=== PATIENT | female | born 1980 | race Two or more races ===

== ENCOUNTER 2017-03-18 19:11 | Emergency (ER) | payer SELFPAY ==
[~2017-03-18] VITALS: Ht 162.6 cm; Wt 125.2 kg
[~2017-03-18 19:11] MED LIST: FERR325T PO; LEVO100T8
[2017-03-18 19:41] VITALS: BP 130/77
[2017-03-18] MEDS ORDERED: ACETAMINOPHEN 325 MG TAB PO ONE ×2 (19:45→20:00)
[2017-03-18 20:12] LABS: Urine Bilirubin Negative (Negative); Urine Blood 3+ /uL (Negative); Urine Color Yellow (Yellow); Urine Glucose Normal (Normal); Urine Ketone Negative (Negative); Urine Mucus FEW (None Seen); Urine Nitrite Negative (Negative); Urine RBC 7 /hpf (0 - 4); Urine Squamous Epithelial Cell MOD /hpf (<5); Urine Urobilinogen Normal (Negative); Urine pH 5.5 (5.0-8.0)
[2017-03-18 20:14] LABS: Basophils # (auto) 0.1 uL; Basophils % (auto) 0.7 % (0.0-2.0); Eosinophils # (auto) 0 uL; Eosinophils % (auto) 0.1 % (0.0-7.0); Hematocrit 43.2 % (36.0-46.0); Hemoglobin 14.6 g/dL (12.2-16.2); Lymphocytes # (auto) 1.7 uL; Lymphocytes % (auto) 16.8 % (10.0-50.0); Mean Corpuscular Hemoglobin 28.5 pg (28.0-32.0); Mean Corpuscular Hgb Conc. 33.8 g/dL (32.0-36.0); Mean Corpuscular Volume 84.3 fL (80.0-100.0); Mean Platelet Volume 9.2 fL (6.9-10.8); Monocytes # (auto) 0.5 uL; Monocytes % (auto) 5.2 % (0.0-12.0); Neutrophils # (auto) 7.8 uL; Neutrophils % (auto) 77.2 % (37.0-80.0); Platelet Count (auto) 289 10^3/uL (140-450); Red Cell Distribution Width 14.2 % (11.8-14.3); White Blood Cell 10.1 10^3/uL (4.4-10.8)
[2017-03-18 20:30] LABS: Albumin 3.6 g/dL (3.4-5.0); Calcium 9.1 mg/dL (8.5-10.1); Potassium 3.7 mmol/L (3.5-5.1)
[2017-03-18 20:33] LABS: Bilirubin, Total 0.7 mg/dL (0.2-1.0)
[2017-03-18] MEDS ORDERED: ONDANSETRON ODT 4 MG TAB PO ONE (21:00)
== END 2017-03-18 21:58 | disposition home or self-care (01) ==
LOC: ER 19:23
DX: K52.9 Noninfective gastroenteritis and colitis, unspecified (principal); N39.0 Urinary tract infection, site not specified; E07.89 Other specified disorders of thyroid
CPT/HCPCS: 36415; 80053; 81001; 85025; 99284; Q0162

== ENCOUNTER 2017-06-12 20:59 | Emergency (ER) | payer MEDICAID ==
[~2017-06-12] VITALS: Ht 170.2 cm; Wt 136.1 kg
[~2017-06-12 20:59] MED LIST changes: +FERR-20 PO; -FERR325T PO
[2017-06-12 21:25] VITALS: BP 155/90
[2017-06-12 21:54] LABS: Basophils # (auto) 0.1 uL; Basophils % (auto) 0.4 % (0.0-2.0); Eosinophils # (auto) 0.1 uL; Eosinophils % (auto) 0.9 % (0.0-7.0); Hematocrit 42.9 % (36.0-46.0); Lymphocytes # (auto) 2.7 uL; Lymphocytes % (auto) 20.5 % (10.0-50.0); Mean Corpuscular Hemoglobin 27.8 pg (28.0-32.0); Mean Corpuscular Hgb Conc. 32.7 g/dL (32.0-36.0); Monocytes # (auto) 0.8 uL; Monocytes % (auto) 6.3 % (0.0-12.0); Neutrophils # (auto) 9.5 uL; Neutrophils % (auto) 71.9 % (37.0-80.0); Platelet Count (auto) 318 10^3/uL (140-450); Red Blood Cells 5.05 10^6/uL (4.0-5.20); Red Cell Distribution Width 14.3 % (11.8-14.3); White Blood Cell 13.1 10^3/uL (4.4-10.8)
[2017-06-12 22:14] LABS: Albumin 3.7 g/dL (3.4-5.0); BUN/Creatinine Ratio 23.2; Bilirubin, Total 0.3 mg/dL (0.2-1.0); Calcium 8.9 mg/dL (8.5-10.1); Total Protein 8.2 g/dL (6.4-8.2)
== END 2017-06-12 23:24 | disposition left against medical advice (07) ==
LOC: EDBD 20:59 → ER 21:20
DX: T38.2X1A Poisoning by antithyroid drugs, accidental (unintentional), initial encounter (principal); Z53.21 Procedure and treatment not carried out due to patient leaving prior to being seen by health care provider; Y93.89 Activity, other specified; Y99.8 Other external cause status; Y92.89 Other specified places as the place of occurrence of the external cause
CPT/HCPCS: 36415; 80053; 84443; 85025

== ENCOUNTER 2020-06-03 16:37 | Inpatient (IN) | payer MEDICAID ==
[~2020-06-03] VITALS: Ht 165.1 cm; Wt 113.0 kg
[2020-06-03] MEDS ORDERED: ACETAMINOPHEN 325 MG TAB PO ONE (18:15)
[2020-06-03] MEDS ORDERED: AZITHROMYCIN 500MG/ 250ML 250 ML IV ONE (19:00)
[2020-06-03] MEDS ORDERED: ZINC SULFATE 220mg CAP or TAB PO ONE (19:00)
[2020-06-03] MEDS ORDERED: DexAMETHasone SOD PHOS 10MG/1ML VIAL INJ IV ONE (19:00)
[2020-06-03 20:12] LABS: Basophils # (auto) 0 10 ^3/uL (0-0.2); Basophils % (auto) 0.3 % (0.0-2.0); Eosinophils # (auto) 0 10 ^3/uL (0-0.8); Eosinophils % (auto) 0.1 % (0.0-7.0); Hematocrit 39.4 % (36.0-46.0); Hemoglobin 13.4 g/dL (12.2-16.2); Lymphocytes # (auto) 1.5 10 ^3/uL (0.4-5.4); Lymphocytes % (auto) 23.9 % (10.0-50.0); Mean Corpuscular Hgb Conc. 33.9 g/dL (32.0-36.0); Mean Corpuscular Volume 82.6 fL (80.0-100.0); Monocytes # (auto) 0.6 10 ^3/uL (0-1.3); Neutrophils # (auto) 4.1 10 ^3/uL (1.6-8.6); Neutrophils % (auto) 65.7 % (37.0-80.0); Nucleated Red Blood Cells % 0.2 %; Platelet Count (auto) 207 10^3/uL (140-450); Red Blood Cells 4.77 10^6/uL (4.0-5.20); Red Cell Distribution Width 13.8 % (11.8-14.3); White Blood Cell 6.2 10^3/uL (4.4-10.8)
[2020-06-03 20:39] LABS: Albumin 3.3 g/dL (3.4-5.0); Magnesium 2.1 mg/dL (1.6-2.6); Potassium 3.7 mmol/L (3.5-5.1)
[2020-06-03 20:44] LABS: BUN/Creatinine Ratio 15.5; Bilirubin, Total 0.5 mg/dL (0.2-1.0); Total Protein 8.2 g/dL (6.4-8.2)
[2020-06-03] MEDS ORDERED: TEMAZEPAM 15 MG CAP PO PRN (21:00)
[2020-06-03] MEDS ORDERED: ONDANSETRON HCL 4 MG/2 ML VIAL IV PRN (21:00)
[2020-06-03] MEDS ORDERED: REMDESIVIR PER PHARMACY 0 ML IV SCH (21:00)
[2020-06-03] MEDS ORDERED: NITROGLYCERIN 0.4 MG SL TAB SL PRN (21:00)
[2020-06-03] MEDS ORDERED: ACETAMINOPHEN 500 MG TAB PO PRN (21:00)
[2020-06-03] MEDS ORDERED: MORPHINE SULF INJ 2 MG/ML SYRINGE 1ML IV PRN (21:00)
[2020-06-03 21:40] LABS: Magnesium 2.3 mg/dL (1.6-2.6)
[2020-06-03 21:49] LABS: CRP High Sensitivity 9.41 mg/dL (< 0.3)
[2020-06-03] MEDS: FAMOTIDINE 20 MG TAB PO SCH (22:00)
[2020-06-03] MEDS: ENOXAPARIN SOD 40 MG/0.4 ML SYRINGE SC SCH (22:00)
[2020-06-04 06:30] LABS: Basophils # (auto) 0 10 ^3/uL (0-0.2); Basophils % (auto) 0.1 % (0.0-2.0); Eosinophils # (auto) 0 10 ^3/uL (0-0.8); Hematocrit 39.1 % (36.0-46.0); Hemoglobin 13.2 g/dL (12.2-16.2); Lymphocytes # (auto) 0.7 10 ^3/uL (0.4-5.4); Lymphocytes % (auto) 16.4 % (10.0-50.0); Mean Corpuscular Hemoglobin 28.1 pg (28.0-32.0); Mean Corpuscular Hgb Conc. 33.6 g/dL (32.0-36.0); Mean Corpuscular Volume 83.4 fL (80.0-100.0); Monocytes # (auto) 0.2 10 ^3/uL (0-1.3); Monocytes % (auto) 4.1 % (0.0-12.0); Neutrophils # (auto) 3.2 10 ^3/uL (1.6-8.6); Neutrophils % (auto) 79.4 % (37.0-80.0); Nucleated Red Blood Cells % 0.2 %; Platelet Count (auto) 191 10^3/uL (140-450); Red Blood Cells 4.69 10^6/uL (4.0-5.20); Red Cell Distribution Width 14.2 % (11.8-14.3)
[2020-06-04] MEDS: LEVOTHYROXINE SODIUM 100 MCG TAB PO SCH (06:30)
[2020-06-04 06:51] LABS: Albumin 3.2 g/dL (3.4-5.0); Calcium 8.9 mg/dL (8.5-10.1)
[2020-06-04 06:55] LABS: BUN/Creatinine Ratio 18.1; Bilirubin, Total 0.5 mg/dL (0.2-1.0); Total Protein 8.2 g/dL (6.4-8.2)
[2020-06-04] MEDS: DexAMETHasone SOD PHOS 10MG/1ML VIAL INJ IV SCH (10:05)
[2020-06-04] MEDS: ZINC SULFATE 220mg CAP or TAB PO SCH (10:05)
[2020-06-04] MEDS: ASCORBIC ACID 1,000 MG TAB PO SCH (10:06)
[2020-06-04] MEDS: FAMOTIDINE 20 MG TAB PO SCH ×2 (10:06→21:32)
[2020-06-04] MEDS: CHOLECALCIFEROL (VITD3) 2,000 UNIT CAP PO SCH (10:06)
[2020-06-04] MEDS: ENOXAPARIN SOD 40 MG/0.4 ML SYRINGE SC SCH ×2 (10:06→21:30)
[2020-06-04] MEDS ORDERED: POTASSIUM CHL 10 Meq TABLET PO ONE (13:30)
[2020-06-04] MEDS ORDERED: FUROSEMIDE 40 MG/4 ML VIAL IV ONE (13:30)
[2020-06-04] MEDS ORDERED: diphenhdrAMINE HCL 50 MG/1 ML VL IV PRN (13:30)
[2020-06-04] MEDS: FUROSEMIDE 40 MG/4 ML VIAL IV SCH (18:00)
[2020-06-04] MEDS: BUDESONIDE (INHALATION) 180 MCG IH IN SCH (19:24)
[2020-06-04] MEDS ORDERED: REMDESIVIR 200 MG in NS 210ml LOADING DOSE ADULT IV ONE (20:00)
[2020-06-04] MEDS: ALBUTEROL SULF HFA 90MCG INH 200DOSE IN PRN (20:56)
[2020-06-04] MEDS: AZITHROMYCIN 500MG/ 250ML 250 ML IV SCH (21:31)
[2020-06-04] MEDS: POTASSIUM CHL 10 Meq TABLET PO SCH (21:31)
[2020-06-05] VITALS: BP 122/78
[2020-06-05 00:16] LABS: Urine Bacteria NONE SEEN /hpf (None Seen); Urine Blood Negative /uL (Negative); Urine Mucus FEW (None Seen); Urine Specific Gravity 1.027 (1.001-1.035); Urine WBC 1 /hpf (0 - 5)
[2020-06-05 00:31] LABS: Amphetamine Screen, Urine NEGATIVE (NEGATIVE); Barbiturate Scree,Urine NEGATIVE (NEGATIVE); Benzodiazephine Screen, Urine NEGATIVE (NEGATIVE); Cannabinoid Screen, Urine NEGATIVE (NEGATIVE); Cocaine Screen, Urine NEGATIVE (NEGATIVE); Opiate Scree,Urine NEGATIVE (NEGATIVE); Phencyclidine Screen, Urine NEGATIVE (NEGATIVE)
[2020-06-05 00:35] LABS: Alcohol, Urine < 3.0 mg/dL (0-10)
[2020-06-05] MEDS ORDERED: MIDAZOLAM DRIP 50 mg/50mL 100 ML IV ONE (03:24)
[2020-06-05] MEDS ORDERED: NOREPINEPHRINE 8 MG/250ML KIT 250 ML IV ONE (03:24)
[2020-06-05] MEDS ORDERED: VASOPRESSIN 20 UNIT/ML ONE (03:44)
[2020-06-05] MEDS: FUROSEMIDE 40 MG/4 ML VIAL IV SCH ×2 (06:36→17:49)
[2020-06-05] MEDS: LEVOTHYROXINE SODIUM 100 MCG TAB PO SCH (06:37)
[2020-06-05] MEDS: BUDESONIDE (INHALATION) 180 MCG IH IN SCH ×2 (07:24→19:02)
[2020-06-05 08:00] VITALS: BP 119/72
[2020-06-05] MEDS: ALBUTEROL SULF HFA 90MCG INH 200DOSE IN PRN ×2 (08:25→19:02)
[2020-06-05 08:51] LABS: Potassium 4.1 mmol/L (3.5-5.1)
[2020-06-05] MEDS: DexAMETHasone SOD PHOS 10MG/1ML VIAL INJ IV SCH (09:24)
[2020-06-05] MEDS: ASCORBIC ACID 1,000 MG TAB PO SCH (09:25)
[2020-06-05] MEDS: ZINC SULFATE 220mg CAP or TAB PO SCH (09:25)
[2020-06-05] MEDS: CHOLECALCIFEROL (VITD3) 2,000 UNIT CAP PO SCH (09:25)
[2020-06-05] MEDS: FAMOTIDINE 20 MG TAB PO SCH ×2 (09:25→21:30)
[2020-06-05] MEDS: POTASSIUM CHL 10 Meq TABLET PO SCH ×2 (09:25→21:30)
[2020-06-05] MEDS: ENOXAPARIN SOD 40 MG/0.4 ML SYRINGE SC SCH ×2 (09:26→21:31)
[2020-06-05 09:31] LABS: Albumin 3.3 g/dL (3.4-5.0); BUN/Creatinine Ratio 25.3; Bilirubin, Total 0.5 mg/dL (0.2-1.0); Total Protein 8.7 g/dL (6.4-8.2)
[2020-06-05] MEDS: REMDESIVIR 100 MG in SODIUM CHL 0.9% 250 ML IV SCH (15:46)
[2020-06-05 16:30] VITALS: BP 113/58
[2020-06-05] MEDS: AZITHROMYCIN 500MG/ 250ML 250 ML IV SCH (21:30)
[2020-06-05 23:33] VITALS: BP 140/69
[2020-06-06] MEDS: FUROSEMIDE 40 MG/4 ML VIAL IV SCH ×2 (06:00→18:00)
[2020-06-06] MEDS: LEVOTHYROXINE SODIUM 100 MCG TAB PO SCH (06:11)
[2020-06-06] MEDS: BUDESONIDE (INHALATION) 180 MCG IH IN SCH (06:58)
[2020-06-06] MEDS: ALBUTEROL SULF HFA 90MCG INH 200DOSE IN PRN (07:31)
[2020-06-06 08:00] VITALS: BP 109/70
[2020-06-06 08:39] LABS: Albumin 3.1 g/dL (3.4-5.0); BUN/Creatinine Ratio 29.6; Bilirubin, Total 0.3 mg/dL (0.2-1.0); Calcium 8.9 mg/dL (8.5-10.1); Potassium 4.2 mmol/L (3.5-5.1); Total Protein 7.8 g/dL (6.4-8.2)
[2020-06-06] MEDS: POTASSIUM CHL 10 Meq TABLET PO SCH (09:49)
[2020-06-06] MEDS: ASCORBIC ACID 1,000 MG TAB PO SCH (09:49)
[2020-06-06] MEDS: DexAMETHasone SOD PHOS 10MG/1ML VIAL INJ IV SCH (09:49)
[2020-06-06] MEDS: ZINC SULFATE 220mg CAP or TAB PO SCH (09:49)
[2020-06-06] MEDS: FAMOTIDINE 20 MG TAB PO SCH (09:49)
[2020-06-06] MEDS: ENOXAPARIN SOD 40 MG/0.4 ML SYRINGE SC SCH (09:50)
[2020-06-06] MEDS: CHOLECALCIFEROL (VITD3) 2,000 UNIT CAP PO SCH (09:50)
[2020-06-06] MEDS ORDERED: ALBUAER3 IN (11:15)
[2020-06-06] MEDS ORDERED: AZIT500T66 PO (11:15)
[2020-06-06] MEDS ORDERED: ZINC220T6 PO (11:15)
[2020-06-06] MEDS ORDERED: ASCO500T11 PO (11:15)
[2020-06-06] MEDS ORDERED: CHOL20007 PO (11:15)
[2020-06-06] MEDS ORDERED: PANT40TA2 PO (11:15)
[2020-06-06] MEDS ORDERED: FURO40TA4 PO (11:15)
[2020-06-06] MEDS ORDERED: POTA10TA51 PO (11:15)
[2020-06-06] MEDS ORDERED: METH4PAK PO (11:15)
[2020-06-06] MEDS ORDERED: DEXT1SYP9 PO (11:17)
[2020-06-06] MEDS ORDERED: ONDA-144 PO (11:17)
[2020-06-06 13:36] VITALS: BP 109/70
[2020-06-06] MEDS ORDERED: ASPI81CH43 PO (14:11)
[2020-06-06] MEDS: REMDESIVIR 100 MG in SODIUM CHL 0.9% 250 ML IV SCH (15:37)
[2020-06-06 16:00] VITALS: BP 102/64
== END 2020-06-06 19:30 | disposition home or self-care (01) | DRG 137 ==
LOC: ER 16:37 → OVERFLOW 16:38 → TELE-WESTW 06-04 17:17
PROVIDERS: ADMIT Nurse Practitioner; ATTEND Internal Medicine
PROC: XW033E5 Introduction of Remdesivir Anti-infective into Peripheral Vein, Percutaneous Approach, New Technology Group 5 (ICD-10-PCS; principal; 2020-06-04)
DX: U07.1 COVID-19 (principal); J12.89 Other viral pneumonia; J96.01 Acute respiratory failure with hypoxia; E66.01 Morbid (severe) obesity due to excess calories; I10 Essential (primary) hypertension; R65.10 Systemic inflammatory response syndrome (SIRS) of non-infectious origin without acute organ dysfunction; Z82.49 Family history of ischemic heart disease and other diseases of the circulatory system; E03.9 Hypothyroidism, unspecified; D64.9 Anemia, unspecified; R79.89 Other specified abnormal findings of blood chemistry; E44.1 Mild protein-calorie malnutrition; Z68.42 Body mass index [BMI] 45.0-49.9, adult
CPT/HCPCS: 36415; 36600; 71045; 80053; 80307; 81001; 82728; 82805; 83036; 83605; 83615; 83735; 83880; 84443; 84484; 84702; 85025; 85379; 86141; 86850; 86900; 86901; 87040; 87426; 94640; 96365; 96368; 96375; G0378; J1100; J2250; J7060

== ENCOUNTER 2021-01-11 11:23 | Inpatient (IN) | payer MEDICAID ==
[~2021-01-11] VITALS: Ht 167.6 cm; Wt 148.5 kg
[~2021-01-11 11:23] MED LIST changes: +ALBUAER3 IN; +ASCO500T11 PO; +ASPI81CH43 PO; +AZIT500T66 PO; +CHOL20007 PO; +DEXT1SYP9 PO; +FURO40TA4 PO; +METH4PAK PO; +ONDA-144 PO; +PANT40TA2 PO; +POTA10TA51 PO; +ZINC220T6 PO
[2021-01-11] MEDS ORDERED: SODIUM CHLORIDE 0.9% 500 ML IVB ONE (11:45)
[2021-01-11] MEDS ORDERED: ONDANSETRON HCL 4 MG/2 ML VIAL IV ONE (11:45)
[2021-01-11] MEDS ORDERED: MORPHINE SULFATE 4 MG/ML SYR/VIAL IV ONE (11:45)
[2021-01-11] MEDS ORDERED: PANTOPRAZOLE 40 MG/10 ML VIAL INJ IV ONE (11:45)
[2021-01-11 11:57] LABS: Basophils # (auto) 0 10 ^3/uL (0-0.2); Basophils % (auto) 0.6 % (0.0-2.0); Eosinophils # (auto) 0.1 10 ^3/uL (0-0.8); Hematocrit 39.8 % (36.0-46.0); Hemoglobin 13.4 g/dL (12.2-16.2); Lymphocytes # (auto) 1.9 10 ^3/uL (0.4-5.4); Lymphocytes % (auto) 25.7 % (10.0-50.0); Mean Corpuscular Hemoglobin 28.6 pg (28.0-32.0); Mean Corpuscular Hgb Conc. 33.7 g/dL (32.0-36.0); Mean Corpuscular Volume 84.7 fL (80.0-100.0); Monocytes # (auto) 0.5 10 ^3/uL (0-1.3); Monocytes % (auto) 7.1 % (0.0-12.0); Neutrophils # (auto) 4.8 10 ^3/uL (1.6-8.6); Neutrophils % (auto) 64.6 % (37.0-80.0); Nucleated Red Blood Cells % 0.1 %; Red Blood Cells 4.69 10^6/uL (4.0-5.20); Red Cell Distribution Width 14.3 % (11.8-14.3); White Blood Cell 7.4 10^3/uL (4.4-10.8)
[2021-01-11 12:37] LABS: Albumin 3.7 g/dL (3.4-5.0); Calcium 9.8 mg/dL (8.5-10.1)
[2021-01-11 12:44] LABS: BUN/Creatinine Ratio 17.5; Bilirubin, Total 1.4 mg/dL (0.2-1.0); Total Protein 8.6 g/dL (6.4-8.2)
[2021-01-11] MEDS ORDERED: hydrALAZINE HCL 20 MG/ML VL IV PRN (14:00)
[2021-01-11] MEDS ORDERED: MORPHINE SULF INJ 2 MG/ML SYRINGE 1ML IV PRN (14:00)
[2021-01-11] MEDS ORDERED: MORPHINE SULFATE 4 MG/ML SYR/VIAL IV PRN (14:00)
[2021-01-11] MEDS ORDERED: NITROGLYCERIN 0.4 MG SL TAB SL PRN (14:00)
[2021-01-11] MEDS ORDERED: LORazepam 2MG/ML-1ML VIAL IV PRN (14:00)
[2021-01-11] MEDS ORDERED: LEVO88CA3 PO (21:18)
[2021-01-12 06:24] LABS: Basophils # (auto) 0 10 ^3/uL (0-0.2); Basophils % (auto) 0.6 % (0.0-2.0); Eosinophils # (auto) 0.2 10 ^3/uL (0-0.8); Eosinophils % (auto) 3.3 % (0.0-7.0); Hematocrit 38.1 % (36.0-46.0); Hemoglobin 12.7 g/dL (12.2-16.2); Lymphocytes # (auto) 1.9 10 ^3/uL (0.4-5.4); Lymphocytes % (auto) 26.3 % (10.0-50.0); Mean Corpuscular Hemoglobin 28.4 pg (28.0-32.0); Mean Corpuscular Hgb Conc. 33.4 g/dL (32.0-36.0); Monocytes # (auto) 0.6 10 ^3/uL (0-1.3); Monocytes % (auto) 8.3 % (0.0-12.0); Neutrophils # (auto) 4.5 10 ^3/uL (1.6-8.6); Neutrophils % (auto) 61.5 % (37.0-80.0); Red Blood Cells 4.48 10^6/uL (4.0-5.20); Red Cell Distribution Width 14.6 % (11.8-14.3); White Blood Cell 7.2 10^3/uL (4.4-10.8)
[2021-01-12 06:40] LABS: INR 1.03 (0.9-1.15)
[2021-01-12 06:49] LABS: Albumin 3.2 g/dL (3.4-5.0); Calcium 8.6 mg/dL (8.5-10.1); Potassium 3.7 mmol/L (3.5-5.1)
[2021-01-12 06:50] VITALS: BP 98/57
[2021-01-12 06:51] LABS: BUN/Creatinine Ratio 20.5
[2021-01-12 06:53] LABS: Bilirubin, Total 0.7 mg/dL (0.2-1.0); Total Protein 7.6 g/dL (6.4-8.2)
[2021-01-12 08:19] LABS: Urine Bacteria NONE SEEN /hpf (None Seen); Urine Blood Negative /uL (Negative); Urine Mucus FEW (None Seen); Urine WBC 5 /hpf (0 - 5)
[2021-01-12 09:00] VITALS: BP 131/79
[2021-01-12] MEDS: PANTOPRAZOLE 40 MG/10 ML VIAL INJ IV SCH (09:02)
[2021-01-12] MEDS: ENOXAPARIN SOD 40 MG/0.4 ML SYRINGE SC SCH (09:03)
[2021-01-12] MEDS ORDERED: ALBUTEROL SULF 2.5 MG/0.5ML(0.5%) NEB SOLN NEB PRN (10:00)
[2021-01-12] MEDS: SODIUM CHLORIDE 0.9% 1,000 ML IV SCH ×2 (10:34→20:00)
[2021-01-12] MEDS ORDERED: LEVOTHYROXINE SODIUM 100 MCG TAB PO ONE (10:45)
[2021-01-12 13:00] VITALS: BP 110/71
[2021-01-12 15:00] VITALS: BP 110/71
[2021-01-12 16:45] VITALS: BP 148/80
[2021-01-12] MEDS: FERROUS SULFATE 325mg EC TAB PO SCH (17:55)
[2021-01-12 22:00] VITALS: BP 123/71
[2021-01-13 05:00] VITALS: BP 113/65
[2021-01-13 05:45] LABS: Basophils # (auto) 0.1 10 ^3/uL (0-0.2); Basophils % (auto) 0.8 % (0.0-2.0); Eosinophils # (auto) 0.3 10 ^3/uL (0-0.8); Hematocrit 36.4 % (36.0-46.0); Hemoglobin 12.4 g/dL (12.2-16.2); Lymphocytes # (auto) 2.5 10 ^3/uL (0.4-5.4); Lymphocytes % (auto) 34.3 % (10.0-50.0); Mean Corpuscular Hemoglobin 28.6 pg (28.0-32.0); Mean Corpuscular Hgb Conc. 34.1 g/dL (32.0-36.0); Mean Corpuscular Volume 83.7 fL (80.0-100.0); Monocytes # (auto) 0.5 10 ^3/uL (0-1.3); Monocytes % (auto) 6.8 % (0.0-12.0); Neutrophils # (auto) 3.9 10 ^3/uL (1.6-8.6); Neutrophils % (auto) 54.1 % (37.0-80.0); Nucleated Red Blood Cells % 0.1 %; Red Blood Cells 4.35 10^6/uL (4.0-5.20); Red Cell Distribution Width 14.3 % (11.8-14.3); White Blood Cell 7.2 10^3/uL (4.4-10.8)
[2021-01-13 06:04] LABS: Potassium 3.6 mmol/L (3.5-5.1)
[2021-01-13 06:25] LABS: Albumin 3.1 g/dL (3.4-5.0); BUN/Creatinine Ratio 20.3; Bilirubin, Total 0.5 mg/dL (0.2-1.0); Calcium 8.6 mg/dL (8.5-10.1); Total Protein 7.4 g/dL (6.4-8.2)
[2021-01-13] MEDS: LEVOTHYROXINE SODIUM 100 MCG TAB PO SCH (06:36)
[2021-01-13] MEDS: ENOXAPARIN SOD 40 MG/0.4 ML SYRINGE SC SCH (08:47)
[2021-01-13] MEDS: FERROUS SULFATE 325mg EC TAB PO SCH ×2 (08:47→17:33)
[2021-01-13] MEDS: PANTOPRAZOLE 40 MG/10 ML VIAL INJ IV SCH (08:47)
[2021-01-13 09:00] VITALS: BP 117/74
[2021-01-13 13:00] VITALS: BP 124/84
[2021-01-13 17:00] VITALS: BP 125/74
[2021-01-13] MEDS: SODIUM CHLORIDE 0.9% 1,000 ML IV SCH (17:33)
[2021-01-13 22:00] VITALS: BP 120/70
[2021-01-14] MEDS: SODIUM CHLORIDE 0.9% 1,000 ML IV SCH ×2 (02:00→12:35)
[2021-01-14 05:00] VITALS: BP 107/76
[2021-01-14 05:51] LABS: Basophils # (auto) 0 10 ^3/uL (0-0.2); Basophils % (auto) 0.6 % (0.0-2.0); Eosinophils # (auto) 0.2 10 ^3/uL (0-0.8); Eosinophils % (auto) 3.3 % (0.0-7.0); Hemoglobin 12.9 g/dL (12.2-16.2); Lymphocytes # (auto) 2.2 10 ^3/uL (0.4-5.4); Mean Corpuscular Hemoglobin 27.9 pg (28.0-32.0); Mean Corpuscular Hgb Conc. 33.1 g/dL (32.0-36.0); Mean Corpuscular Volume 84.5 fL (80.0-100.0); Monocytes # (auto) 0.5 10 ^3/uL (0-1.3); Monocytes % (auto) 7.6 % (0.0-12.0); Neutrophils # (auto) 3.4 10 ^3/uL (1.6-8.6); Neutrophils % (auto) 53.5 % (37.0-80.0); Red Blood Cells 4.62 10^6/uL (4.0-5.20); Red Cell Distribution Width 14.3 % (11.8-14.3); White Blood Cell 6.3 10^3/uL (4.4-10.8)
[2021-01-14] MEDS: LEVOTHYROXINE SODIUM 100 MCG TAB PO SCH (05:53)
[2021-01-14 06:22] LABS: Potassium 4.1 mmol/L (3.5-5.1)
[2021-01-14 06:32] LABS: Albumin 3.3 g/dL (3.4-5.0); BUN/Creatinine Ratio 11.4; Calcium 8.7 mg/dL (8.5-10.1)
[2021-01-14 06:34] LABS: Bilirubin, Total 0.5 mg/dL (0.2-1.0); Total Protein 7.8 g/dL (6.4-8.2)
[2021-01-14] MEDS ORDERED: ROCURONIUM 10MG/ML 10ML VIAL IV ONE (07:37)
[2021-01-14] MEDS ORDERED: SODIUM CHLORIDE LOCK 10 ML ONE (07:37)
[2021-01-14] MEDS ORDERED: PROPOFOL 10 MG/ML 20 ML IV ONE (07:37)
[2021-01-14] MEDS ORDERED: fentaNYL CITRATE 100 MCG/2 ML VL ONE (07:37)
[2021-01-14] MEDS ORDERED: HYDROmorphone HCL 2 MG/ML VL ONE (07:37)
[2021-01-14] MEDS ORDERED: NEOSTIGMINE 1 MG/ML INJ (10mg/10ML VIAL) ONE (07:37)
[2021-01-14] MEDS ORDERED: GLYCOPYRROLATE 0.2 MG/ML 1ML VIAL ONE (07:37)
[2021-01-14] MEDS ORDERED: ONDANSETRON HCL 4 MG/2 ML VIAL ONE (07:37)
[2021-01-14] MEDS ORDERED: MIDAZOLAM HCL 2MG/2ML 2ml VIAL (1mg/ml) ONE (07:37)
[2021-01-14] MEDS ORDERED: LIDOCAINE 2% (LOCAL ANESTH.) PF 5ml SDV ONE (07:39)
[2021-01-14 08:00] VITALS: BP 130/71
[2021-01-14] MEDS: FERROUS SULFATE 325mg EC TAB PO SCH (08:00)
[2021-01-14] MEDS ORDERED: ceFAZolin 1GM/50ML 100 ML IV ONE (08:12)
[2021-01-14] MEDS ORDERED: MORPHINE SULFATE 4 MG/ML SYR/VIAL IV PRN ×2 (09:00→13:15)
[2021-01-14] MEDS ORDERED: HYDROmorphone HCL 2 MG/ML VL IV PRN (09:00)
[2021-01-14] MEDS ORDERED: METOCLOPRAMIDE HCL 5MG/ml INJ 2ml VIAL IV PRN (09:00)
[2021-01-14 12:12] VITALS: BP 114/68
[2021-01-14] MEDS: PANTOPRAZOLE 40 MG/10 ML VIAL INJ IV SCH (12:35)
[2021-01-14] MEDS: HYDROcodone-ACET 5/325MG TAB PO PRN (12:48)
[2021-01-14] MEDS: MORPHINE SULFATE 4 MG/ML SYR/VIAL IV PRN ×2 (13:25→22:21)
[2021-01-14] MEDS: ONDANSETRON HCL 4 MG/2 ML VIAL IV PRN (13:26)
[2021-01-14] MEDS ORDERED: HYDROmorphone HCL 2 MG/ML VL IV ONE (15:15)
[2021-01-14 17:00] VITALS: BP 135/80
[2021-01-14 22:00] VITALS: BP 135/75
[2021-01-15] MEDS: SODIUM CHLORIDE 0.9% 1,000 ML IV SCH ×3 (00:58→18:46)
[2021-01-15 05:00] VITALS: BP 110/53
[2021-01-15 05:24] LABS: Basophils # (auto) 0 10 ^3/uL (0-0.2); Basophils % (auto) 0.1 % (0.0-2.0); Eosinophils # (auto) 0 10 ^3/uL (0-0.8); Hematocrit 37.4 % (36.0-46.0); Hemoglobin 12.8 g/dL (12.2-16.2); Lymphocytes # (auto) 1.3 10 ^3/uL (0.4-5.4); Lymphocytes % (auto) 13.5 % (10.0-50.0); Mean Corpuscular Hemoglobin 28.9 pg (28.0-32.0); Mean Corpuscular Hgb Conc. 34.3 g/dL (32.0-36.0); Mean Corpuscular Volume 84.3 fL (80.0-100.0); Monocytes # (auto) 0.5 10 ^3/uL (0-1.3); Monocytes % (auto) 5.4 % (0.0-12.0); Neutrophils # (auto) 7.7 10 ^3/uL (1.6-8.6); Red Blood Cells 4.44 10^6/uL (4.0-5.20); White Blood Cell 9.5 10^3/uL (4.4-10.8)
[2021-01-15 05:42] LABS: Albumin 3.4 g/dL (3.4-5.0); Calcium 8.9 mg/dL (8.5-10.1); Potassium 3.7 mmol/L (3.5-5.1)
[2021-01-15 05:47] LABS: Bilirubin, Total 0.4 mg/dL (0.2-1.0)
[2021-01-15] MEDS: LEVOTHYROXINE SODIUM 100 MCG TAB PO SCH (06:11)
[2021-01-15 08:29] VITALS: BP 102/57
[2021-01-15] MEDS: PANTOPRAZOLE 40 MG/10 ML VIAL INJ IV SCH (10:47)
[2021-01-15] MEDS: ONDANSETRON HCL 4 MG/2 ML VIAL IV PRN (10:47)
[2021-01-15] MEDS: MORPHINE SULFATE 4 MG/ML SYR/VIAL IV PRN (10:47)
[2021-01-15 12:38] VITALS: BP 118/63
[2021-01-15 16:27] VITALS: BP 110/72
[2021-01-15 22:00] VITALS: BP 126/63
[2021-01-15] MEDS: HYDROcodone-ACET 5/325MG TAB PO PRN (22:05)
[2021-01-16 05:00] VITALS: BP 111/68
[2021-01-16 05:56] LABS: Basophils # (auto) 0 10 ^3/uL (0-0.2); Basophils % (auto) 0.5 % (0.0-2.0); Eosinophils # (auto) 0.1 10 ^3/uL (0-0.8); Eosinophils % (auto) 1.1 % (0.0-7.0); Hematocrit 33.5 % (36.0-46.0); Hemoglobin 11.5 g/dL (12.2-16.2); Lymphocytes # (auto) 2.8 10 ^3/uL (0.4-5.4); Lymphocytes % (auto) 33.9 % (10.0-50.0); Mean Corpuscular Hgb Conc. 34.4 g/dL (32.0-36.0); Mean Corpuscular Volume 84.3 fL (80.0-100.0); Monocytes # (auto) 0.7 10 ^3/uL (0-1.3); Monocytes % (auto) 7.9 % (0.0-12.0); Neutrophils # (auto) 4.7 10 ^3/uL (1.6-8.6); Neutrophils % (auto) 56.6 % (37.0-80.0); Nucleated Red Blood Cells % 0.1 %; Red Blood Cells 3.98 10^6/uL (4.0-5.20); Red Cell Distribution Width 14.2 % (11.8-14.3); White Blood Cell 8.3 10^3/uL (4.4-10.8)
[2021-01-16 06:25] LABS: Potassium 3.8 mmol/L (3.5-5.1)
[2021-01-16] MEDS: LEVOTHYROXINE SODIUM 100 MCG TAB PO SCH (06:26)
[2021-01-16] MEDS: SODIUM CHLORIDE 0.9% 1,000 ML IV SCH (06:26)
[2021-01-16 06:34] LABS: BUN/Creatinine Ratio 17.9; Bilirubin, Total 0.4 mg/dL (0.2-1.0); Calcium 8.2 mg/dL (8.5-10.1); Total Protein 7.1 g/dL (6.4-8.2)
[2021-01-16 09:00] VITALS: BP 103/58
[2021-01-16 13:00] VITALS: BP 130/70
[2021-01-16 13:28] VITALS: BP 103/58
[2021-01-16] MEDS ORDERED: ENOXAPARIN SOD 30 MG/0.3 ML SYRINGE SC SCH (15:00)
== END 2021-01-16 14:43 | disposition home or self-care (01) | DRG 263 ==
LOC: ER 11:23 → OVERFLOW 13:46 → CENTRAL 19:54
PROVIDERS: ADMIT Family Medicine; ATTEND Internal Medicine
PROC: 0FT44ZZ Resection of Gallbladder, Percutaneous Endoscopic Approach (ICD-10-PCS; principal; 2021-01-14 09:35)
DX: K80.00 Calculus of gallbladder with acute cholecystitis without obstruction (principal); Z68.43 Body mass index [BMI] 50.0-59.9, adult; E66.01 Morbid (severe) obesity due to excess calories; E86.0 Dehydration; K21.9 Gastro-esophageal reflux disease without esophagitis; Z20.822 Contact with and (suspected) exposure to COVID-19; R79.89 Other specified abnormal findings of blood chemistry; E03.9 Hypothyroidism, unspecified; Z82.49 Family history of ischemic heart disease and other diseases of the circulatory system; Z86.16 Personal history of COVID-19; Z87.01 Personal history of pneumonia (recurrent)
CPT/HCPCS: 36415; 74181; 76705; 80053; 81001; 82150; 83036; 83690; 84443; 84702; 85025; 85610; 86850; 86900; 86901; 87426; 96361; 96374; 96375; C9113; G0378; J0690; J2001; J2250; J2405; J2704